=== PATIENT | male | born 1975 | race American Indian/Alaskan Native ===

== ENCOUNTER 2020-03-12 12:56 | Emergency (ER) | payer SELFPAY ==
--- NOTE | 2020-03-12 15:07 | Event Note ---
ED Screening Note Date of service: 03/12/20 Time: 15:05 ED Screening Note: Pt complains of left nasal bleeding starting today while at work. He denies any trauma to his nose. Blood pressure noted to be significantly elevated, patient denies any history of hypertension Patient also denies any headache, chest pain, shortness of breath, dizziness, or vision changes. This initial assessment/diagnostic orders/clinical plan/treatment(s) is/are subject to change based on patients health status, clinical progression and re- assessment by fellow clinical providers in the ED. Further treatment and workup at subsequent clinical providers discretion. Patient/guardian urged not to elope from the ED as their condition may be serious if not clinically assessed and managed. Initial orders include: Afrin BP control
[2020-03-12] MEDS ORDERED: OXYMETAZOLINE 0.05% NASAL SPRAY NS ONE (15:08)
[2020-03-12] MEDS ORDERED: cloNIDine 0.2 MG TAB PO ONE (15:20)
--- NOTE | 2020-03-12 15:25 | Emergency Department Report ---
HPI - General Chief Complaint: Nosebleed Time Seen by Provider: 03/12/20 15:03 - HPI HPI: 44-year-old male presents to the emergency department with complaint of some bleeding from the left nostril that started earlier today while at work. When it first started he says it was dripping out but since that time it has become intermittent. He denies any nasal trauma. He denies any fever or headache. This is never happened to him previously. The patient presents with a very elevated blood pressure. He denies any history of hypertension but also does not follow with a primary care physician, or at least has not seen one in the past 4 years. He has not taken anything for symptoms prior to presentation today. ED Past Medical Hx - Past Medical History Previous Medical History?: Yes Hx Hypertension: Yes - Surgical History Past Surgical History?: No - Social History Smoking Status: Never Smoker Substance Use Type: None - Medications Home Medications: Home Medications Medication Instructions Recorded Confirmed Last Taken Type amLODIPine 10 mg PO DAILY #30 tab 03/12/20 Unknown Rx ED Review of Systems ROS: Stated complaint: NOSE BLEEDING Other details as noted in HPI Comment: All other systems reviewed and negative Constitutional: denies: chills, fever ENT: epistaxis. denies: ear pain, throat pain Respiratory: denies: cough, shortness of breath Cardiovascular: denies: chest pain, palpitations Neurological: denies: headache Physical Exam - Physical Exam Vital Signs: Vital Signs 03/12/20 15:04 Temperature 98.5 F Pulse Rate 106 H Respiratory 16 Rate Blood Pressure 195/124 O2 Sat by Pulse 98 Oximetry Physical Exam: GENERAL: The patient is well-developed well-nourished. HENT: Normocephalic. Atraumatic. Patient has moist mucous membranes. There is a small amount of red blood seen in the left nasal passage but no active extravasation or hemorrhage. EYES: Extraocular motions are intact. NECK: Supple. Trachea is midline. CHEST/LUNGS: Clear to auscultation. There is no respiratory distress noted. HEART/CARDIOVASCULAR: Regular. There is no tachycardia. There is no murmur. SKIN: Skin is warm and dry. NEURO: The patient is awake, alert, and oriented. The patient is cooperative. Normal speech. MUSCULOSKELETAL: There is no tenderness or deformity. There is no evidence of acute injury. ED Course Vital Signs 03/12/20 15:04 Temperature 98.5 F Pulse Rate 106 H Respiratory 16 Rate Blood Pressure 195/124 O2 Sat by Pulse 98 Oximetry ED Medical Decision Making - Medical Decision Making This patient presents with some left-sided epistaxis since being at work earlier today. Patient presents with very elevated blood pressure which may be part of the reason for his epistaxis. Patient was given a dose of Catapres and his blood pressure came down slightly. He was reevaluated multiple times over multiple hours and he has gone at least 1 hour without any return of the epistaxis. He will be discharged home on some amlodipine for his hypertension. We discussed smoking cessation and dietary changes to make. He will keep a blood pressure log. He has been given referrals for both primary care and otolaryngology. He will return to the ER with any worsening of his symptoms or any acute distress. Critical Care Time: No Critical care attestation.: If time is entered above; I have spent that time in minutes in the direct care of this critically ill patient, excluding procedure time. ED Disposition Clinical Impression: Epistaxis Hypertension Qualifiers: Hypertension type: essential hypertension Qualified Code(s): I10 - Essential (primary) hypertension Disposition: DC-01 TO HOME OR SELFCARE Is pt being admited?: No Condition: Stable Instructions: Epistaxis (ED), Hypertension (ED) Additional Instructions: Please follow-up with a primary care physician in the next few days. I am starting you on a blood pressure medication called Norvasc/amlodipine that is taken once per day, usually in the morning. Try and quit smoking. Please try and stay away from foods that are high in salt and caffeinated products. Keep a blood pressure log. If your nose starts to bleed again, hold pressure for 20 minutes with your head level. If it continues to bleed after that you may need to return to an urgent care or emergency department. Prescriptions: amLODIPine 10 mg PO DAILY #30 tab Referrals: PRIMARY CARE, [Primary Care Provider] - 3-5 Days DESTINEY CELESTIN MD [Staff Physician] - 3-5 Days ADOLFO LAWSON MD [Staff Physician] - 3-5 Days Time of Disposition: 16:36
[2020-03-12 16:06] VITALS: BP 184/136
== END 2020-03-12 16:40 | disposition home or self-care (01) ==
LOC: ED 12:56
DX: R04.0 Epistaxis (principal); I10 Essential (primary) hypertension; Z79.899 Other long term (current) drug therapy
CPT/HCPCS: 99282